=== PATIENT | female | born 2000 | race Caucasian/White ===

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

== ENCOUNTER 2019-10-18 14:04 | Emergency (ER) | payer OTHER ==
[~2019-10-18] VITALS: Ht 177.8 cm; Wt 63.8 kg
[~2019-10-18 14:04] MED LIST changes: +PRED-220 PO
[2019-10-18 14:48] LABS: BASO # 0.1 x10^3/uL (0.0-0.2); BASO % 1 % (0-3); EOS # 0.3 x10^3/uL (0.0-0.7); EOS % 4 % (0-3); HEMATOCRIT 42.9 % (36.0-47.0); HEMOGLOBIN 14.6 g/dL (12.0-15.5); LYMPH # 1.3 x10^3/uL (1.0-4.8); LYMPH % 16 % (24-48); MEAN CORPUSCULAR HEMOGLOBIN 30 pg (25-35); MEAN CORPUSCULAR HGB CONC 34 g/dL (31-37); MEAN CORPUSCULAR VOLUME 88 fL (79-100); MONO # 0.6 x10^3/uL (0.0-1.1); MONO % 8 % (0-9); NEUT # 5.7 x10^3/uL (1.8-7.7); NEUT % 72 % (31-73); PLATELET COUNT 238 x10^3/uL (140-400); RED BLOOD COUNT 4.87 x10^6/uL (3.50-5.40); RED CELL DISTRIBUTION WIDTH 12.5 % (11.5-14.5)
[2019-10-18 14:55] LABS: BILIRUBIN,URINE SMALL (NEG); CLARITY,URINE TURBID; COLOR,URINE YELLOW; NITRITE,URINE NEGATIVE (NEG); PH,URINE 5.5 (<5.0-8.0); PROTEIN,URINE NEGATIVE (NEG-TRACE); UROBILINOGEN,URINE 0.2 mg/dL (0.2 mg/dL)
--- NOTE | 2019-10-18 14:59 | PHYS DOC ---
Past Medical History Past Medical History: Asthma, Other Additional Past Medical Histor: ENVIRONMENTAL ALLERGIES: TAKES Rx Past Surgical History: Other Additional Past Surgical Histo: WISDOM TEETH Smoking Status: Never Smoker Alcohol Use: None Drug Use: None General Adult EDM: Chief Complaint: ABDOMINAL PAIN HPI: HPI: 19-year-old female presents emergency department today with abdominal pain on the right side. Is been there for about a week. It radiates around her flank. She has not taken any medications for it. It is worse when she eats. No al leviating factors. She denies fevers or vomiting. Review of systems negative for chest pain shortness of breath rash headache. All other review of systems negative. ED course 19-year-old female presents emergency department today with abdominal pain on the right side. Work-up here is unremarkable. White blood cell count within normal limits. CT shows no secondary signs of appendicitis but was unable to evaluate the appendix. We will discharge to follow-up with PCP tomorrow for repeat abdominal exam. Nausea medication prescribed. The patient has been examined and was not found to have an emergency medical condition. The patient was then discharged home in stable condition to follow up with their primary care physician tomorrow or urgent care tomorrow. They were to return if their symptoms worsened or if they were concerned for any reason. They were also instructed to return to the emergency department if they were unable to get the recommended and appropriate follow-up. [id number] discharge instructions and return precautions were given. Patient's questions were answered to their satisfaction. Patient is comfortable with plan. Heart Score: Risk Factors: Risk Factors: DM, Current or recent (<one month) smoker, HTN, HLP, family histo ry of CAD, obesity. Risk Scores: Score 0 - 3: 2.5% MACE over next 6 weeks - Discharge Home Score 4 - 6: 20.3% MACE over next 6 weeks - Admit for Clinical Observation Score 7 - 10: 72.7% MACE over next 6 weeks - Early Invasive Strategies Current Medications: Current Medications Medications (Trade) Dose Ordered Sig/Jerzy Start Time Stop Time Status Last Admin Dose Admin Metoclopramide HCl (Reglan Vial) 10 mg 1X ONCE 10/18/19 15:00 10/18/19 15:01 10/18/19 14:54 10 MG Sodium Chloride 1,000 ml @ 1,000 mls/hr 1X ONCE 10/18/19 15:00 10/18/19 15:59 10/18/19 14:54 1,000 MLS/HR Allergies: Allergies: Allergies Coded Allergies Type Severity Reaction Last Updated Verified doxycycline Allergy Severe RASH,HIVES 05/31/18 Yes Physical Exam: PE: Constitutional: Well developed, well nourished, no acute distress, non-toxic appearance. [] HENT: Normocephalic, atraumatic, bilateral external ears normal, oropharynx moist, no oral exudates, nose normal. [] Eyes: PERRLA, EOMI, conjunctiva normal, no discharge. [] Neck: Normal range of motion, no tenderness, supple, no stridor. [] Cardiovascular:Heart rate regular rhythm, no murmur [] Lungs & Thorax: Bilateral breath sounds clear to auscultation [] Abdomen: Bowel sounds normal, soft, mildly tender to palpation in the right lower quadrant., no masses, no pulsatile masses. No rebound tenderness or guarding. Skin: Warm, dry, no erythema, no rash. [] Back: No tenderness, no CVA tenderness. [] Extremities: No tenderness, no cyanosis, no clubbing, ROM intact, no edema. [] Neurologic: Alert and oriented X 3, normal motor function, normal sensory function, no focal deficits noted. [] Psychologic: Affect normal, judgement normal, mood normal. [] Current Patient Data: Labs: Laboratory Tests Test 10/18/19 14:23 10/18/19 14:24 POC Urine HCG, Qualitative Hcg negative (Negative) White Blood Count 8.0 x10^3/uL (4.0-11.0) Red Blood Count 4.87 x10^6/uL (3.50-5.40) Hemoglobin 14.6 g/dL (12.0-15.5) Hematocrit 42.9 % (36.0-47.0) Mean Corpuscular Volume 88 fL (79-100) Mean Corpuscular Hemoglobin 30 pg (25-35) Mean Corpuscular Hemoglobin Concent 34 g/dL (31-37) Red Cell Distribution Width 12.5 % (11.5-14.5) Platelet Count 238 x10^3/uL (140-400) Neutrophils (%) (Auto) 72 % (31-73) Lymphocytes (%) (Auto) 16 % (24-48) L Monocytes (%) (Auto) 8 % (0-9) Eosinophils (%) (Auto) 4 % (0-3) H Basophils (%) (Auto) 1 % (0-3) Neutrophils # (Auto) 5.7 x10^3/uL (1.8-7.7) Lymphocytes # (Auto) 1.3 x10^3/uL (1.0-4.8) Monocytes # (Auto) 0.6 x10^3/uL (0.0-1.1) Eosinophils # (Auto) 0.3 x10^3/uL (0.0-0.7) Basophils # (Auto) 0.1 x10^3/uL (0.0-0.2) Laboratory Tests 10/18/19 14:24 EKG: EKG: [] Radiology/Procedures: Radiology/Procedures: [] Course & Med Decision Making: Course & Med Decision Making Pertinent Labs and Imaging studies reviewed. (See chart for details) [] Dragon Disclaimer: Dragon Disclaimer: This electronic medical record was generated, in whole or in part, using a voice recognition dictation system. Departure Departure Impression: Primary Impression: Abdominal pain Disposition: HOME, SELF-CARE Condition: STABLE Referrals: UNKNOWN PCP NAME (PCP) Patient Instructions: Abdominal Pain, Possible Early Appendicitis Additional Instructions: Follow-up with your primary physician in 1 tomorrow. Return to the emergency department if you have any new or concerning findings. This condition should be evaluated by your primary care physician and any necessary consulting services for continued management within a few days after discharge. Return to the emergency department if you have any new or concerning symptoms including but not limited to fever, chills, nausea, vomiting, intractable pain, any new rashes, chest pain, shortness of breath, uncontrolled bleeding, difficulty breathing, and/or vision loss. Justicifation of Admission Dx: Justifications for Admission: Justification of Admission Dx: N/A NEVILLE PAYTON MD Oct 18, 2019 14:58
[2019-10-18] MEDS ORDERED: METOCLOPRAMIDE HCL 10 MG/2 ML VIAL. IVP ONE (15:00)
[2019-10-18] MEDS ORDERED: IV NORMAL SALINE 1000ML BAG 1,000 ML IV ONE (15:00)
[2019-10-18 15:01] LABS: CALCIUM 8.3 mg/dL (8.5-10.1); CREATININE 0.8 mg/dL (0.6-1.0); GFR 91.4; POTASSIUM 3.4 mmol/L (3.5-5.1)
[2019-10-18 15:06] LABS: AMORPHOUS SEDIMENT,UR PRESENT /HPF; BACTERIA,URINE FEW /HPF (0-FEW); RBC,URINE 0 /HPF (0-2); SQUAMOUS EPITHELIAL CELL,UR FEW /LPF; WBC,URINE OCC /HPF (0-4)
[2019-10-18 15:07] LABS: ALBUMIN 3.4 g/dL (3.4-5.0); ALBUMIN/GLOBULIN RATIO 0.9 (1.0-1.7); TOTAL BILIRUBIN 0.3 mg/dL (0.2-1.0)
[2019-10-18] MEDS ORDERED: IOHEXOL 300 MG/ML 100ML VIAL. IV ONE (15:15)
[2019-10-18] MEDS ORDERED: CONTRAST GIVEN. MC PRN (15:30)
--- NOTE | 2019-10-18 15:54 | RAD ---
CT abdomen pelvis with contrast dated 10/18/2019. No comparison available. CLINICAL INDICATION: Pain right-sided. TECHNIQUE: Contiguous axial imaging the M pelvis performed after the administration of 75 cc Omnipaque 300. One or more of the following individualized dose reduction techniques were utilized for this examination: 1. Automated exposure control 2. Adjustment of the mA and/or kV according to patient size 3. Use of iterative reconstruction technique. FINDINGS: Limited images of lung bases are clear. Heart size within normal limits. No pleural or pericardial effusion. Liver, spleen, pancreas, adrenal glands, gallbladder and kidneys are unremarkable. No hydronephrosis. Unopacified GI tract normal in caliber and contour. No focal bowel wall thickening. No inflammatory stranding in the mesentery. No ascites or lymphadenopathy. Abdominal aorta normal in caliber. The appendix is not clearly identified. No inflammatory changes in the right lower quadrant. Images of pelvis show nondistended urinary bladder. Uterus and adnexa are unremarkable. Trace amount of free pelvic fluid. No pelvic lymphadenopathy. Bone windows show no acute findings. IMPRESSION: 1. No acute abnormality of abdomen or pelvis. 2. The appendix is not clearly identified. No inflammatory changes in the right lower quadrant 3. Trace amount of free pelvic fluid, nonspecific. Electronically signed by: Dillon Simons MD (10/18/2019 3:51 PM) [facility]
[2019-10-18] MEDS ORDERED: ONDA4TAB7 PO (16:17)
[2019-10-18 16:37] VITALS: BP 116/67
== END 2019-10-18 16:37 | disposition home or self-care (01) ==
LOC: ER 14:04
DX: R10.31 Right lower quadrant pain (principal); J45.909 Unspecified asthma, uncomplicated; Z88.1 Allergy status to other antibiotic agents
CPT/HCPCS: 36415; 74177; 80053; 81001; 81025; 83690; 85025; 87086; 96361; 96374; 99285; J2765; J7030; Q9967

== ENCOUNTER → 2019-10-23 | Outpatient (CLI) | payer OTHER ==
[2019-10-18 16:37] VITALS: BP 116/67
[~2019-10-23] MED LIST changes: +ONDA4TAB7 PO
== END | disposition home or self-care (01) ==
LOC: SPEC 12:47
PROVIDERS: ATTEND Nurse Practitioner Family
DX: R19.7 Diarrhea, unspecified (principal)
CPT/HCPCS: 87177; 87209; 87329; 87493; 87505

== ENCOUNTER 2021-02-18 08:04 | Emergency (ER) | payer OTHER ==
[~2021-02-18] VITALS: Ht 180.3 cm; Wt 70.0 kg
[2021-02-18] MEDS ORDERED: ONDANSETRON PF 4 MG/2 ML VIAL. IVP ONE (08:30)
[2021-02-18] MEDS ORDERED: FAMOTIDINE 20 MG/2 ML VIAL IVP ONE (08:30)
[2021-02-18] MEDS ORDERED: LIDO:MAALOX 1:1 20 ML SINGLE DOSE. SWSW ONE (08:30)
[2021-02-18] MEDS ORDERED: ACETAMINOPHEN 500 MG TABLET PO ONE (08:30)
[2021-02-18] MEDS ORDERED: IV NORMAL SALINE 1000ML BAG 1,000 ML IV ONE (08:30)
[2021-02-18 08:56] LABS: BILIRUBIN,URINE NEGATIVE (NEG); CLARITY,URINE CLEAR; COLOR,URINE YELLOW; NITRITE,URINE NEGATIVE (NEG); PROTEIN,URINE NEGATIVE (NEG-TRACE); UROBILINOGEN,URINE 0.2 mg/dL (0.2 mg/dL)
--- NOTE | 2021-02-18 09:08 | RAD ---
EXAM: ULTRASOUND ABDOMEN LIMITED CLINICAL HISTORY: RUQ and epigastric pain; evaluate gallbladder + biliary system COMPARISON: None available. TECHNIQUE: Limited ultrasound examination of the right upper quadrant of the abdomen was performed. FINDINGS: The head and body of the pancreas are unremarkable. The tail is obscured by intestinal gas.. Liver: 15.5 cm in length. The hepatic margin is smooth and the hepatic echogenicity is normal. The re are no focal liver lesions. Flow seen within the portal veins. Biliary: No cholelithiasis. No wall thickening or pericholecystic fluid. There is no pain with dire ct transducer pressure over the gallbladder. Common bile duct measures 0.2 cm. Right Kidney: 10.8 cm in bipolar length. Normal renal cortical echotexture and thickness. No focal re nal lesion, shadowing renal calculus or hydronephrosis. Visualized portions of the abdominal aorta and inferior vena cava are unremarkable. There is no free fluid in the subhepatic space. IMPRESSION: No cholelithiasis. No evidence of acute cholecystitis. Normal caliber common bile duct. Electronically signed by: Lopez Vaughn MD (02/18/2021 9:06 AM) [id number]
[2021-02-18 09:10] LABS: BACTERIA,URINE 0 /HPF (0-FEW); HYALINE CASTS, URINE FEW /HPF; RBC,URINE 20-40 /HPF (0-2); WBC,URINE 0 /HPF (0-4)
--- NOTE | 2021-02-18 09:12 | PHYS DOC ---
Past Medical History Past Medical History: Asthma, Other Additional Past Medical Histor: ENVIRONMENTAL ALLERGIES: TAKES Rx Past Surgical History: No Surgical History Additional Past Surgical Histo: WISDOM TEETH Smoking Status: Never Smoker Alcohol Use: None Drug Use: None Adult General Chief Complaint Chief Complaint: ABDOMINAL PAIN HPI HPI The patient is a 20-year-old female who is otherwise healthy. She presents for evaluation of 1 day of right upper quadrant and epigastric discomfort, nonradiating and constant. Discomfort is sharp. Severity 5 out of 10 at present. Associated nausea without vomiting. No associated fevers, upper respiratory congestion/rhinorrhea, cough, sore throat, shortness of breath or chest pain of any kind, lower abdominal pain of any kind, flank pain, midline back pain, dysuria, hematuria, polyuria or oliguria, unusual vaginal discharge or bleeding, changes in bowel habits. Patient has never had similar discomfort in the past. She is alert and pleasantly and appropriately interactive and in no acute distress with appropriate vital signs upon initial evaluation here in the emergency department. There is a significant family history of gallbladder disease. Review of Systems Review of Systems A 12 point review of systems was completed and was negative except where noted in HPI above. Current Medications Current Medications Current Medications Medications (Trade) Dose Ordered Sig/Jerzy Start Time Stop Time Status Last Admin Dose Admin Acetaminophen (Tylenol) 1,000 mg 1X ONCE 02/18/21 08:30 02/18/21 08:31 DC 02/18/21 08:56 1,000 MG Famotidine (Pepcid Vial) 20 mg 1X ONCE 02/18/21 08:30 02/18/21 08:31 DC 02/18/21 08:56 20 MG Ketorolac Tromethamine (Toradol 15mg Vial) 15 mg 1X ONCE 02/18/21 10:00 02/18/21 10:03 DC 02/18/21 10:00 15 MG Multi-Ingredient Mouthwash/Gargle (Gi Cocktail) 20 ml 1X ONCE 02/18/21 08:30 02/18/21 08:31 DC 02/18/21 08:56 20 ML Ondansetron HCl (Zofran) 4 mg 1X ONCE 02/18/21 08:30 02/18/21 08:31 DC 02/18/21 08:56 4 MG Sodium Chloride 1,000 ml @ 1,000 mls/hr 1X ONCE 02/18/21 08:30 129/21 09:29 DC 02/18/21 08:30 1,000 MLS/HR Allergies Allergies Allergies Coded Allergies Type Severity Reaction Last Updated Verified doxycycline Allergy Severe RASH,HIVES 02/18/21 Yes Physical Exam Physical Exam 20-year-old female appearing nontoxic and in no acute distress. Head is normocephalic and atraumatic. Neck is supple and nontender. Oropharynx is moist. Lungs are clear to auscultation at all stations. There is a normal S1 and S2 without rubs or gallops and capillary refill is appropriate, less than 2 seconds globally. Abdomen is soft and nondistended with mild focal right upper quadrant and epigastric tenderness to palpation without rebound or guarding. Skin is warm and dry without cyanosis, clubbing or edema. Psychiatrically, the patient demonstrates appropriate mood and affect and is alert. Current Patient Data Vital Signs Vital Signs Date Time Temp Pulse Resp B/P (MAP) Pulse Ox O2 Delivery O2 Flow Rate FiO2 02/18/21 08:16 97.8 102 17 139/85 (103) 98 Room Air 97.8 Lab Values Laboratory Tests Test 02/18/21 08:12 02/18/21 08:15 02/18/21 08:50 POC Urine HCG, Qualitative Hcg negative (Negative) Urine Collection Type Unknown Urine Color Yellow Urine Clarity Clear Urine pH 5.0 (<5.0-8.0) Urine Specific [place] 1.020 (1.000-1.030) Urine Protein Negative mg/dL (NEG-TRACE) Urine Glucose (UA) Negative mg/dL (NEG) Urine Ketones (Stick) Negative mg/dL (NEG) Urine Blood Large (NEG) Urine Nitrite Negative (NEG) Urine Bilirubin Negative (NEG) Urine Urobilinogen Dipstick 0.2 mg/dL (0.2 mg/dL) Urine Leukocyte Esterase Negative (NEG) Urine RBC 20-40 /HPF (0-2) Urine WBC 0 /HPF (0-4) Urine Squamous Epithelial Cells Mod /LPF Urine Bacteria 0 /HPF (0-FEW) Urine Hyaline Casts Few /HPF Urine Mucus Mod /LPF White Blood Count 8.4 x10^3/uL (4.0-11.0) Red Blood Count 4.78 x10^6/uL (3.50-5.40) Hemoglobin 14.1 g/dL (12.0-15.5) Hematocrit 43.2 % (36.0-47.0) Mean Corpuscular Volume 90 fL (79-100) Mean Corpuscular Hemoglobin 30 pg (25-35) Mean Corpuscular Hemoglobin Concent 33 g/dL (31-37) Red Cell Distribution Width 13.1 % (11.5-14.5) Platelet Count 214 x10^3/uL (140-400) Neutrophils (%) (Auto) 70 % (31-73) Lymphocytes (%) (Auto) 18 % (24-48) L Monocytes (%) (Auto) 6 % (0-9) Eosinophils (%) (Auto) 5 % (0-3) H Basophils (%) (Auto) 1 % (0-3) Neutrophils # (Auto) 5.9 x10^3/uL (1.8-7.7) Lymphocytes # (Auto) 1.5 x10^3/uL (1.0-4.8) Monocytes # (Auto) 0.5 x10^3/uL (0.0-1.1) Eosinophils # (Auto) 0.4 x10^3/uL (0.0-0.7) Basophils # (Auto) 0.0 x10^3/uL (0.0-0.2) Sodium Level 141 mmol/L (136-145) Potassium Level 4.0 mmol/L (3.5-5.1) Chloride Level 103 mmol/L (98-107) Carbon Dioxide Level 26 mmol/L (21-32) Anion Gap 12 (6-14) Blood Urea Nitrogen 9 mg/dL (7-20) Creatinine 0.8 mg/dL (0.6-1.0) Estimated GFR (Cockcroft-Gault) 90.5 BUN/Creatinine Ratio 11 (6-20) Glucose Level 93 mg/dL (70-99) Calcium Level 8.8 mg/dL (8.5-10.1) Total Bilirubin 0.5 mg/dL (0.2-1.0) Aspartate Amino Transferase (AST) 13 U/L (15-37) L Alanine Aminotransferase (ALT) 18 U/L (14-59) Alkaline Phosphatase 58 U/L (46-116) Troponin I High Sensitivity 4 ng/L (4-50) Total Protein 7.2 g/dL (6.4-8.2) Albumin 3.9 g/dL (3.4-5.0) Albumin/Globulin Ratio 1.2 (1.0-1.7) Lipase 65 U/L (73-393) L Laboratory Tests 02/18/21 08:50 Laboratory Tests 02/18/21 08:50 EKG EKG [] Radiology/Procedures Radiology/Procedures XR AAS: Nonobstructive nonspecific bowel gas pattern. Moderate constipation with moderate colonic stool burden seen. EP interpretation. Discussed directly with the radiologist who is in agreement. US RUQ: No acute process per radiologist interpretation. Course & Med Decision Making Course & Med Decision Making Will place IV and give IV fluids and medication for nausea and discomfort as noted and will check labs, urine and a right upper quadrant ultrasound and will then reevaluate. 11:04: Patient is resting comfortably in no acute distress and is feeling quite a bit better on serial reassessments. Large work-up is without significant evidence of acute process aside from evidence of constipation with moderate st ool burden noted on abdominal plain films and some hematuria (patient states she is currently on her period). In view of significant improvement in symptoms and reassuring work-up in this well-appearing young patient, will discharge home with medication for discomfort and a bowel regimen. She is to follow-up closely with primary care in the next 2 to 3 days and to return to the emergency department right away if symptoms worsen or if other new symptoms of concern develop. All questions were answered Dragon Disclaimer Dragon Disclaimer This electronic medical record was generated, in whole or in part, using a voice recognition dictation system. Departure Departure Impression: Primary Impression: Abdominal pain, acute, right upper quadrant Additional Impression: Acute constipation Disposition: 01 HOME / SELF CARE / HOMELESS Condition: GOOD Patient Instructions: Abdominal Pain (Nonspecific), Constipation, Adult Additional Instructions: Follow-up very closely with your primary care doctor in the next 2 to 3 days for a reevaluation of your symptoms and to discussion of next best steps in care. When you get home, take the bottle of magnesium citrate to get things moving. Begin taking MiraLAX twice a day (1 capful in a glass of liquid) to help soften your stool. If this causes diarrhea you can back off to once a day MiraLAX. Tomorrow evening take 2 caps of Senokot laxative to continue cleaning out. Drink plenty of fluids. You may take a 600 mg ibuprofen every 6 hours as needed for discomfort. You may take a 10 mg Bentyl pill every 6 hours as needed for discomfort as well. Return to the emergency department right away for worsening symptoms of any kind or with any other new symptoms of concern. Scripts Sennosides (SENNA LAXATIVE) 8.6 Mg Tablet 2 TAB PO HS for constipation for 1 Day, #2 TAB 0 Refills Prov: LUIS ALBERTO LOPEZ MD 02/18/21 Dicyclomine Hcl (DICYCLOMINE HCL) 10 Mg Capsule 10 MG PO QID PRN for PAIN, #11 CAP Prov: LUIS ALBERTO LOPEZ MD 02/18/21 Polyethylene Glycol 3350 (MIRALAX) 119 Gm Powder 17 GM PO BID for constipation, #255 GM 0 Refills dissolve in water Prov: LUIS ALBERTO LOPEZ MD 02/18/21 Ibuprofen (IBUPROFEN) 600 Mg Tablet 600 MG PO PRN Q6HRS PRN for PAIN, #24 TAB take with food or milk Prov: LUIS ALBERTO LOPEZ MD 02/18/21 Problem Qualifiers LUIS ALBERTO LOPEZ MD Feb 18, 2021 09:12
[2021-02-18 09:27] LABS: BASO % 1 % (0-3); EOS # 0.4 x10^3/uL (0.0-0.7); EOS % 5 % (0-3); HEMATOCRIT 43.2 % (36.0-47.0); HEMOGLOBIN 14.1 g/dL (12.0-15.5); LYMPH # 1.5 x10^3/uL (1.0-4.8); LYMPH % 18 % (24-48); MEAN CORPUSCULAR HEMOGLOBIN 30 pg (25-35); MEAN CORPUSCULAR HGB CONC 33 g/dL (31-37); MEAN CORPUSCULAR VOLUME 90 fL (79-100); MONO # 0.5 x10^3/uL (0.0-1.1); MONO % 6 % (0-9); NEUT # 5.9 x10^3/uL (1.8-7.7); NEUT % 70 % (31-73); PLATELET COUNT 214 x10^3/uL (140-400); RED BLOOD COUNT 4.78 x10^6/uL (3.50-5.40); RED CELL DISTRIBUTION WIDTH 13.1 % (11.5-14.5); WHITE BLOOD COUNT 8.4 x10^3/uL (4.0-11.0)
[2021-02-18 09:40] LABS: CALCIUM 8.8 mg/dL (8.5-10.1); CREATININE 0.8 mg/dL (0.6-1.0); GFR 90.5
[2021-02-18 09:45] LABS: ALBUMIN 3.9 g/dL (3.4-5.0); ALBUMIN/GLOBULIN RATIO 1.2 (1.0-1.7); TOTAL BILIRUBIN 0.5 mg/dL (0.2-1.0); TOTAL PROTEIN 7.2 g/dL (6.4-8.2)
[2021-02-18] MEDS ORDERED: KETOROLAC 15 MG/ML VIAL. IVP ONE (10:00)
--- NOTE | 2021-02-18 10:34 | EKG ---
[facility] [address] [place] [id number] Test Date: 2021-02-18 Test Time: 10:25:45 Pat Name: BRENDA SMITH Department: Room: Gender: F Senior Principal Architect: : 2000 Requested By: LUIS ALBERTO LOPEZ Order Number: [id number] Reading MD: Freddy Holley Measurements Intervals [place] Rate: 68 P: 51 CO: 138 QRS: 44 QRSD: 76 T: 35 QT: 386 QTc: 415 Interpretive Statements SINUS ARRHYTHMIA Electronically Signed On 02-18-2021 12:27:05 [employer] by Freddy Holley
--- NOTE | 2021-02-18 10:36 | RAD ---
Acute Abdominal Series: 02/18/2021 10:04 AM Reason for study: Upper abdominal pain Comparison studies: None. Technique: Frontal view of the chest was obtained along with supine and upright views of the abdomen. Findings: Nonobstructive bowel gas pattern. No air fluid levels or free air. The lungs are clear without acute consolidative opacity. No pleural effusion or pneumothorax. The car diac and mediastinal contours are normal. Visualized osseous structures are intact. IMPRESSION: 1. Nonobstructed bowel gas pattern. 2. No acute cardiopulmonary findings. Electronically signed by: Hue Wells MD (02/18/2021 10:33 AM) [id number]
[2021-02-18] MEDS ORDERED: DICY10CA3 PO (11:13)
[2021-02-18] MEDS ORDERED: POLY119P4 PO (11:13)
[2021-02-18] MEDS ORDERED: SENN8.6T11 PO (11:13)
[2021-02-18] MEDS ORDERED: IBUP-1007 PO (11:13)
[2021-02-18 11:24] VITALS: BP 115/70
[2021-02-18 11:26] LABS: PREG TEST PT QUAL NEGATIVE (NEG)
[2021-02-18] MEDS ORDERED: MAGNESIUM CITRATE 296 ML SOLUTION. PO ONE (11:30)
== END 2021-02-18 11:26 | disposition home or self-care (01) ==
LOC: ER 08:04
DX: K59.09 Other constipation (principal); R10.11 Right upper quadrant pain; R10.13 Epigastric pain; J45.909 Unspecified asthma, uncomplicated; Z88.1 Allergy status to other antibiotic agents
CPT/HCPCS: 36415; 74022; 76705; 80053; 81001; 81025; 83690; 84484; 84703; 85025; 93005; 96361; 96374; 96375; 99285; J1885; J2405; J3490; J7030